=== PATIENT | male | born 1985 | race Hispanic/Latino ===

== ENCOUNTER 2020-06-11 00:58 | Emergency (ER) | payer OTHER ==
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
== END 2020-06-11 02:51 | disposition home or self-care (01) ==
LOC: NAV ERS 00:58
DX: S02.2XXA Fracture of nasal bones, initial encounter for closed fracture (principal); W26.9XXA Contact with unspecified sharp object(s), initial encounter
CPT/HCPCS: 70450; 70486